=== PATIENT | female | born 1955 | race Caucasian/White ===

== ENCOUNTER 2021-02-01 04:32 | Day surgery (SDC) | payer OTHER ==
[2021-02-01] MEDS ORDERED: PROPOFOL 20 ML ONE ×2 (10:10)
[2021-02-01] MEDS ORDERED: MIDAZOLAM HCL 2 MG/2 ML SINGLE DOSE VIAL ONE ×2 (10:10)
[2021-02-01] MEDS ORDERED: LIDOCAINE HCL 1%, 10 MG/ML (20ML VIAL) ONE ×2 (10:13→10:15)
[2021-02-01] MEDS ORDERED: ceFAZolin SODIUM 1 GM VIAL ONE (10:20)
[2021-02-01] MEDS ORDERED: ceFAZolin SODIUM 1 GM VIAL IVPB ONE (10:24)
[2021-02-01] MEDS ORDERED: LIDOCAINE HCL 1%, 10 MG/ML (20ML VIAL) NR ONE (10:25)
[2021-02-01] MEDS ORDERED: HEPARIN NA (PORCINE) 5,000 UNITS/ML 1ML VIAL ONE (10:34)
[2021-02-01] MEDS ORDERED: oxyCODONE HCL 5 MG TABLET PO PRN ×2 (12:57)
[2021-02-01] MEDS ORDERED: ONDANSETRON 4 MG/2 ML VIAL IVPUSH PRN (12:57)
[2021-02-01] MEDS ORDERED: LACTATED RINGERS SOLUTION 1,000 ML IV SCH (13:00)
[2021-02-01 14:11] VITALS: PULSE 65; TEMP 97.5
[2021-02-01 14:12] VITALS: BP 142/68
== END 2021-02-01 14:10 | disposition home or self-care (01) ==
LOC: JASU-SURG 04:32
PROVIDERS: ATTEND Surgery Vascular Surgery
PROC: 047K3DZ Dilation of Right Femoral Artery with Intraluminal Device, Percutaneous Approach (ICD-10-PCS; principal; 2021-02-01 09:30)
DX: E11.51 Type 2 diabetes mellitus with diabetic peripheral angiopathy without gangrene (principal); I70.211 Atherosclerosis of native arteries of extremities with intermittent claudication, right leg
CPT/HCPCS: 37227; C1877; 76000-TC-FY; 82962; 94760; J1644

== ENCOUNTER 2021-04-12 04:58 | Day surgery (SDC) | payer OTHER ==
[2021-04-11 10:54] VITALS: BMI 32.2
[2021-04-12] MEDS ORDERED: PROPOFOL 20 ML ONE ×2 (17:22)
[2021-04-12] MEDS ORDERED: LIDOCAINE HCL 1%, 10 MG/ML (20ML VIAL) ONE (17:24)
[2021-04-12] MEDS ORDERED: MIDAZOLAM HCL 2 MG/2 ML SINGLE DOSE VIAL ONE (17:24)
[2021-04-12] MEDS ORDERED: HEPARIN NA (PORCINE) 5,000 UNITS/ML 1ML VIAL ONE (17:24)
[2021-04-12] MEDS ORDERED: DESFLURANE GAS 240 ML BOTTLE IH ONE (17:28)
[2021-04-12] MEDS ORDERED: ceFAZolin SODIUM 1 GM VIAL IVPB ONE (17:51)
[2021-04-12] MEDS ORDERED: LIDOCAINE HCL 1%, 10 MG/ML (20ML VIAL) INF ONE (18:19)
[2021-04-12] MEDS ORDERED: oxyCODONE HCL 5 MG TABLET PO PRN ×2 (18:46)
[2021-04-12] MEDS ORDERED: ONDANSETRON 4 MG/2 ML VIAL IVPUSH PRN (18:46)
[2021-04-12] MEDS ORDERED: LACTATED RINGERS SOLUTION 1,000 ML IV SCH (19:00)
[2021-04-12 20:18] VITALS: BP 160/65; PULSE 72; TEMP 97
== END 2021-04-12 20:15 | disposition home or self-care (01) ==
LOC: JASU-SURG 04:58
PROVIDERS: ATTEND Surgery Vascular Surgery
PROC: 047L3Z1 Dilation of Left Femoral Artery using Drug-Coated Balloon, Percutaneous Approach (ICD-10-PCS; 2021-04-12)
PROC: B41GYZZ Fluoroscopy of Left Lower Extremity Arteries using Other Contrast (ICD-10-PCS; principal; 2021-04-12 12:30)
DX: I70.212 Atherosclerosis of native arteries of extremities with intermittent claudication, left leg (principal); E11.51 Type 2 diabetes mellitus with diabetic peripheral angiopathy without gangrene; I10 Essential (primary) hypertension
CPT/HCPCS: 37225; C2623; 76000-TC-FY; 82962; 94760; C9803; J1644; U0003; U0005

== ENCOUNTER 2021-09-06 04:34 | Day surgery (SDC) | payer OTHER ==
[2021-09-06] MEDS ORDERED: ONDANSETRON 4 MG/2 ML VIAL IVPUSH PRN (08:58)
[2021-09-06] MEDS ORDERED: oxyCODONE HCL 5 MG TABLET PO PRN (08:58)
[2021-09-06] MEDS ORDERED: LACTATED RINGERS SOLUTION 1,000 ML IV SCH (09:00)
[2021-09-06] MEDS ORDERED: HEPARIN NA (PORCINE) 5,000 UNITS/ML 1ML VIAL ONE ×2 (09:01→09:51)
[2021-09-06] MEDS ORDERED: ceFAZolin SODIUM 1 GM VIAL IVPB ONE (09:28)
[2021-09-06] MEDS ORDERED: MIDAZOLAM HCL 2 MG/2 ML SINGLE DOSE VIAL ONE (09:30)
[2021-09-06] MEDS ORDERED: PROPOFOL 20 ML ONE ×2 (09:32→10:14)
[2021-09-06] MEDS ORDERED: DEXAMETHASONE SOD PHOSPHATE 4 MG/1 ML VIAL ONE (09:38)
[2021-09-06] MEDS ORDERED: HEPARIN NA (PORCINE) 5,000 UNITS/ML 1ML VIAL SQ ONE (09:50)
[2021-09-06] MEDS ORDERED: IOVERSOL 320 MG/ML ML IV ONE (10:03)
[2021-09-06] MEDS ORDERED: LIDOCAINE HCL 1%, 10 MG/ML (20ML VIAL) INF ONE (10:05)
[2021-09-06] MEDS ORDERED: CLOPIDOGREL BISULFATE 75 MG TABLET (FP) PO ONE (10:47)
[2021-09-06] MEDS ORDERED: oxyCODONE HCL 5 MG TABLET ONE (13:52)
[2021-09-06 15:43] VITALS: BP 108/50; PULSE 70; TEMP 97.8
== END 2021-09-06 14:35 | disposition home or self-care (01) ==
LOC: JASU-SURG 04:34
PROVIDERS: ATTEND Surgery Vascular Surgery
PROC: 047K3D1 Dilation of Right Femoral Artery with Intraluminal Device, using Drug-Coated Balloon, Percutaneous Approach (ICD-10-PCS; principal; 2021-09-06 09:30)
DX: E11.51 Type 2 diabetes mellitus with diabetic peripheral angiopathy without gangrene (principal); I70.211 Atherosclerosis of native arteries of extremities with intermittent claudication, right leg
CPT/HCPCS: 36246; 37227; 75898; C1875; C2623; 76000-TC-FY; 82962; 94760; J1644

== ENCOUNTER 2021-11-07 01:30 | Inpatient (IN) | payer OTHER ==
[2021-11-07 03:36] VITALS: BMI 31.5
[2021-11-07] MEDS ORDERED: HEPARIN NA (PORCINE) 5,000 UNITS/ML 1ML VIAL IVPUSH PRN ×4 (04:25→18:21)
[2021-11-07 09:01] LABS: BASO % 0.9 % (0-2.0); EOS % 4.6 % (0-4.5); HEMATOCRIT 37.3 % (32.4-45.2); HEMOGLOBIN 12.6 GM/dL (10.7-15.3); LYMPH % 33.1 % (8-40); MCH 29.2 pg (25.7-33.7); MCHC 33.8 g/dl (32.0-36.0); MEAN CELL VOLUME 86.4 fl (80-96); MEAN PLT VOLUME 9.1 fl (7.5-11.1); MONO % 7.6 % (3.8-10.2); NEUT % 53.8 % (42.8-82.8); PLATELET COUNT 209 10^3/uL (134-434); RBC 4.32 M/mm3 (3.60-5.2); RDW 14.7 % (11.6-15.6)
[2021-11-07 09:34] LABS: ACTIVATED PTT > 400.0 SECONDS (25.2-36.5)
[2021-11-07] MEDS: HEPARIN - 25,000 UNIT in SODIUM CHLORIDE 495 ML IV SCH ×2 (09:45→14:32)
[2021-11-07] MEDS ORDERED: PANTOPRAZOLE 40 MG TABLET PO SCH (10:00)
[2021-11-07] MEDS ORDERED: FOLIC ACID 1 MG TABLET (FP) PO SCH (10:00)
[2021-11-07] MEDS ORDERED: metoPROLOL SUCCINATE 25 MG TAB.SR.24H (FP) PO SCH (10:00)
[2021-11-07] MEDS ORDERED: GABAPENTIN 300 MG CAPSULE PO SCH (10:00)
[2021-11-07 11:03] LABS: BILIRUBIN,TOTAL 0.3 mg/dL (0.2-1); BLOOD UREA NITROGEN 11.1 mg/dL (7-18); CALCIUM 8.5 mg/dL (8.5-10.1); CREATININE 0.6 mg/dL (0.55-1.3)
[2021-11-07] MEDS ORDERED: ACETAMINOPHEN 1000 MG/100 ML BAG IVPB ONE (14:16)
[2021-11-07] MEDS ORDERED: LIDOCAINE HCL 1%, 10 MG/ML (20ML VIAL) ONE (14:48)
[2021-11-07] MEDS ORDERED: HEPARIN NA (PORCINE) 5,000 UNITS/ML 1ML VIAL ONE (14:48)
[2021-11-07] MEDS ORDERED: MIDAZOLAM HCL 2 MG/2 ML SINGLE DOSE VIAL ONE (14:56)
[2021-11-07] MEDS ORDERED: FENTANYL CITRATE/PF 50 MCG/ML VIAL ONE ×4 (14:57→17:20)
[2021-11-07] MEDS ORDERED: LIDOCAINE HCL 1%, 10 MG/ML (20ML VIAL) INF ONE ×2 (15:02→15:33)
[2021-11-07] MEDS ORDERED: HEPARIN NA (PORCINE) 5,000 UNITS/ML 1ML VIAL SQ ONE ×2 (15:02→15:33)
[2021-11-07] MEDS ORDERED: IOHEXOL 300 MG/ML INFUS..BTL IV ONE ×2 (15:33→15:38)
[2021-11-07] MEDS ORDERED: ceFAZolin 2 GRAM PREMIX BAG IVPB ONE (15:45)
[2021-11-07] MEDS ORDERED: SUGAMMADEX SODIUM 200 MG/2 ML VIAL ONE ×2 (16:51→16:52)
[2021-11-07] MEDS ORDERED: PROMETHAZINE HCL 25 MG/1 ML VIAL IVPUSH PRN (17:08)
[2021-11-07] MEDS ORDERED: ONDANSETRON 4 MG/2 ML VIAL IVPUSH PRN ×2 (17:08→18:12)
[2021-11-07] MEDS ORDERED: LACTATED RINGERS SOLUTION 1,000 ML IV SCH (17:15)
[2021-11-07] MEDS ORDERED: CLOPIDOGREL BISULFATE 75 MG TABLET (FP) ONE (18:14)
[2021-11-07] MEDS: CLOPIDOGREL BISULFATE 75 MG TABLET (FP) PO SCH (18:15)
[2021-11-07] MEDS ORDERED: HEPARIN INFUSION - 25,000 UNITS/500 ML INFUS.BAG IVPB ONE (18:20)
[2021-11-07] MEDS ORDERED: HEPARIN INFUSION - 25,000 UNITS/500 ML INFUS.BAG IVPB SCH (18:30)
[2021-11-07] MEDS: HEPARIN NA (PORCINE) 5,000 UNITS/ML 1ML VIAL IVPUSH PRN (18:30)
[2021-11-07] MEDS: ATORVASTATIN CA 80 MG TABLET (FP) PO SCH (21:14)
[2021-11-07] MEDS: PANTOPRAZOLE 40 MG TABLET PO SCH (21:14)
[2021-11-07] MEDS ORDERED: ATORVASTATIN CA 80 MG TABLET (FP) PO SCH (22:00)
[2021-11-08] MEDS ORDERED: ACETAMINOPHEN 1000 MG/100 ML BAG IVPB ONE (08:04)
[2021-11-08] MEDS: FOLIC ACID 1 MG TABLET (FP) PO SCH (10:40)
[2021-11-08] MEDS: CLOPIDOGREL BISULFATE 75 MG TABLET (FP) PO SCH (10:40)
[2021-11-08] MEDS: GABAPENTIN 300 MG CAPSULE PO SCH (10:40)
[2021-11-08] MEDS: PANTOPRAZOLE 40 MG TABLET PO SCH ×2 (10:41→22:01)
[2021-11-08] MEDS: metoPROLOL SUCCINATE 25 MG TAB.SR.24H (FP) PO SCH (10:41)
[2021-11-08] MEDS: HEPARIN NA (PORCINE) 5,000 UNITS/ML 1ML VIAL IVPUSH PRN (12:24)
[2021-11-08] MEDS: INSULIN SLIDING SCALE (NOVOLOG) 1 VIAL SQ SCH ×2 (16:24→22:09)
[2021-11-08] MEDS: ATORVASTATIN CA 80 MG TABLET (FP) PO SCH (22:01)
[2021-11-09] MEDS: INSULIN SLIDING SCALE (NOVOLOG) 1 VIAL SQ SCH ×3 (06:04→16:49)
[2021-11-09 09:22] LABS: HEMATOCRIT 39.3 % (32.4-45.2); MCHC 33.2 g/dl (32.0-36.0); MEAN CELL VOLUME 87.6 fl (80-96); MEAN PLT VOLUME 9.3 fl (7.5-11.1); PLATELET COUNT 222 10^3/uL (134-434); RBC 4.49 M/mm3 (3.60-5.2); RDW 14.6 % (11.6-15.6); WHITE BLOOD COUNT 8.4 K/mm3 (4.0-10.0)
[2021-11-09 09:43] LABS: INR 1.09 (0.83-1.09); PROTHROMBIN TIME (PATIENT) 12.5 SEC (9.7-13.0)
[2021-11-09 09:58] LABS: ALBUMIN 3.1 g/dl (3.4-5.0); BLOOD UREA NITROGEN 14.3 mg/dL (7-18)
[2021-11-09 10:01] LABS: CREATININE 0.7 mg/dL (0.55-1.3); PHOSPHOROUS 2.9 mg/dL (2.5-4.9)
[2021-11-09 10:02] LABS: TOT PROT 6.4 g/dl (6.4-8.2)
[2021-11-09 10:11] LABS: BILIRUBIN,TOTAL 0.5 mg/dL (0.2-1)
[2021-11-09] MEDS: CLOPIDOGREL BISULFATE 75 MG TABLET (FP) PO SCH (10:23)
[2021-11-09] MEDS: GABAPENTIN 300 MG CAPSULE PO SCH (10:23)
[2021-11-09] MEDS: FOLIC ACID 1 MG TABLET (FP) PO SCH (10:23)
[2021-11-09] MEDS: PANTOPRAZOLE 40 MG TABLET PO SCH (10:24)
[2021-11-09] MEDS: metoPROLOL SUCCINATE 25 MG TAB.SR.24H (FP) PO SCH (10:24)
[2021-11-09 16:06] VITALS: BP 140/65; PULSE 66; TEMP 97.8
== END 2021-11-09 17:39 | disposition home or self-care (01) | DRG 272 ==
LOC: J8W 01:30
PROVIDERS: ADMIT Hospitalist; ATTEND Internal Medicine
PROC: 047K3ZZ Dilation of Right Femoral Artery, Percutaneous Approach (ICD-10-PCS; 2021-11-07)
PROC: 047K3DZ Dilation of Right Femoral Artery with Intraluminal Device, Percutaneous Approach (ICD-10-PCS; 2021-11-07)
PROC: B40DYZZ Plain Radiography of Aorta and Bilateral Lower Extremity Arteries using Other Contrast (ICD-10-PCS; 2021-11-07)
PROC: B40FYZZ Plain Radiography of Right Lower Extremity Arteries using Other Contrast (ICD-10-PCS; 2021-11-07)
PROC: 04CK3ZZ Extirpation of Matter from Right Femoral Artery, Percutaneous Approach (ICD-10-PCS; principal; 2021-11-07 15:00)
DX: I70.211 Atherosclerosis of native arteries of extremities with intermittent claudication, right leg (principal); E11.9 Type 2 diabetes mellitus without complications; I10 Essential (primary) hypertension; E78.5 Hyperlipidemia, unspecified; E11.42 Type 2 diabetes mellitus with diabetic polyneuropathy; E87.6 Hypokalemia
CPT/HCPCS: 36415; 76000-TC-FY; 80053; 80061; 82962; 83036; 83735; 84100; 84443; 85025; 85027; 85610; 85730; 86850; 86900; 86901; 93005; 93010; 94760; J1644

== ENCOUNTER 2022-10-03 04:23 | Day surgery (SDC) | payer OTHER ==
[2022-10-02 18:06] VITALS: BMI 31.5
[2022-10-03] MEDS ORDERED: HEPARIN NA (PORCINE) 5,000 UNITS/ML 1ML VIAL ONE (10:37)
[2022-10-03] MEDS ORDERED: LIDOCAINE HCL 1%, 10 MG/ML (10ML VIAL) MDV ONE (10:37)
[2022-10-03] MEDS ORDERED: MIDAZOLAM HCL 2 MG/2 ML SINGLE DOSE VIAL ONE ×2 (11:39→11:48)
[2022-10-03] MEDS ORDERED: ceFAZolin SODIUM 1 GM VIAL IVPB ONE (11:43)
[2022-10-03] MEDS ORDERED: LIDOCAINE HCL 1%, 10 MG/ML (50 mL VIAL) INF ONE (11:47)
[2022-10-03] MEDS ORDERED: ceFAZolin SODIUM 1 GM VIAL ONE (11:48)
[2022-10-03] MEDS ORDERED: ONDANSETRON 4 MG/2 ML VIAL IVPUSH PRN (12:42)
[2022-10-03] MEDS ORDERED: oxyCODONE HCL 5 MG TABLET PO PRN (12:42)
[2022-10-03 15:32] VITALS: PULSE 70; RESP 18
[2022-10-03] MEDS ORDERED: oxyCODONE HCL 5 MG TABLET ONE (15:58)
[2022-10-03 16:14] VITALS: BP 160/54; TEMP 97.8
== END 2022-10-03 16:45 | disposition home or self-care (01) ==
LOC: JASU-SURG 04:23
PROVIDERS: ATTEND Surgery Vascular Surgery
PROC: X27J385 Dilation of Left Femoral Artery with Sustained Release Drug-eluting Intraluminal Device, Percutaneous Approach, New Technology Group 5 (ICD-10-PCS; principal; 2022-10-03 10:30)
DX: I70.212 Atherosclerosis of native arteries of extremities with intermittent claudication, left leg (principal); E11.40 Type 2 diabetes mellitus with diabetic neuropathy, unspecified; I10 Essential (primary) hypertension; I73.9 Peripheral vascular disease, unspecified
CPT/HCPCS: 37226; C1875; 76000-TC-FY; 82962; 94760; C1760; C1769; C1876; J1644

== ENCOUNTER 2022-10-27 12:17 | Inpatient (IN) | payer OTHER ==
[2022-10-27 12:25] VITALS: BMI 26.1
[2022-10-27 13:03] LABS: BASO % 0.7 % (0-2.0); EOS % 2.3 % (0-4.5); HEMATOCRIT 38.2 % (32.4-45.2); HEMOGLOBIN 12.9 GM/dL (10.7-15.3); LYMPH % 27.1 % (8-40); MCH 28.4 pg (25.7-33.7); MCHC 33.8 g/dl (32.0-36.0); MEAN CELL VOLUME 84.1 fl (80-96); MEAN PLT VOLUME 9.6 fl (7.5-11.1); MONO % 6.2 % (3.8-10.2); NEUT % 63.7 % (42.8-82.8); PLATELET COUNT 264 10^3/uL (134-434); RBC 4.54 M/mm3 (3.60-5.2); RDW 15.4 % (11.6-15.6); WHITE BLOOD COUNT 7.9 K/mm3 (4.0-10.0)
[2022-10-27] MEDS ORDERED: ACETAMINOPHEN 1000 MG/100 ML BAG IVPB ONE (13:03)
[2022-10-27 13:13] LABS: ACTIVATED PTT 44.4 SECONDS (25.2-36.5)
[2022-10-27 13:26] LABS: POTASSIUM 4.4 mmol/L (3.5-5.1)
[2022-10-27 13:28] LABS: CALCIUM 10.1 mg/dL (8.5-10.1)
[2022-10-27 13:29] LABS: ALBUMIN 3.4 g/dl (3.4-5.0); BLOOD UREA NITROGEN 13.4 mg/dL (7-18); MAGNESIUM 1.3 mg/dL (1.8-2.4)
[2022-10-27 13:32] LABS: CREATININE 0.7 mg/dL (0.55-1.3)
[2022-10-27 13:33] LABS: BILIRUBIN,TOTAL 0.2 mg/dL (0.2-1); TOT PROT 6.8 g/dl (6.4-8.2)
[2022-10-27] MEDS ORDERED: ACETAMINOPHEN INJECTION 100 ML IVPB ONE (13:56)
[2022-10-27] MEDS ORDERED: MAGNESIUM SULF 50% (8.12 MEQ/2 ML-1 GM VIAL) IVPB ONE (13:59)
[2022-10-27] MEDS ORDERED: MAGNESIUM SULFATE IN WATER 2 GM/50 ML IVPB IVPB ONE (14:35)
[2022-10-27] MEDS ORDERED: oxyCODONE HCL 5 MG TABLET PO PRN (15:01)
[2022-10-27 15:24] LABS: INR 1.37 (0.83-1.09); PROTHROMBIN TIME (PATIENT) 15.8 SEC (9.7-13.0)
[2022-10-27] MEDS ORDERED: LISINOPRIL 10 MG TABLET ONE (15:24)
[2022-10-27] MEDS: LISINOPRIL 10 MG TABLET PO SCH (15:29)
[2022-10-27] MEDS: INSULIN SLIDING SCALE (NOVOLOG) 1 VIAL SQ SCH (17:26)
[2022-10-27] MEDS: ACETAMINOPHEN 325 MG TABLET (FP) PO PRN (21:29)
[2022-10-27] MEDS ORDERED: ATORVASTATIN CA 80 MG TABLET (FP) PO SCH (22:00)
[2022-10-27] MEDS: PANTOPRAZOLE 40 MG TABLET PO SCH (22:02)
[2022-10-27] MEDS: GABAPENTIN 300 MG CAPSULE PO SCH (22:02)
[2022-10-28] MEDS: GABAPENTIN 300 MG CAPSULE PO SCH ×3 (06:12→21:50)
[2022-10-28] MEDS: ACETAMINOPHEN 325 MG TABLET (FP) PO PRN ×3 (06:12→21:50)
[2022-10-28] MEDS: INSULIN SLIDING SCALE (NOVOLOG) 1 VIAL SQ SCH ×3 (06:15→16:53)
[2022-10-28 08:14] LABS: BASO % 1.4 % (0-2.0); EOS % 2.8 % (0-4.5); HEMATOCRIT 32.8 % (32.4-45.2); HEMOGLOBIN 11.1 GM/dL (10.7-15.3); LYMPH % 37.3 % (8-40); MCH 28.3 pg (25.7-33.7); MCHC 33.9 g/dl (32.0-36.0); MEAN CELL VOLUME 83.7 fl (80-96); MEAN PLT VOLUME 9.3 fl (7.5-11.1); MONO % 6.8 % (3.8-10.2); NEUT % 51.7 % (42.8-82.8); PLATELET COUNT 236 10^3/uL (134-434); RBC 3.92 M/mm3 (3.60-5.2); RDW 15.3 % (11.6-15.6); WHITE BLOOD COUNT 5.4 K/mm3 (4.0-10.0)
[2022-10-28 08:20] LABS: INR 1.1 (0.83-1.09); PROTHROMBIN TIME (PATIENT) 12.7 SEC (9.7-13.0)
[2022-10-28 08:22] LABS: ACTIVATED PTT 36.7 SECONDS (25.2-36.5)
[2022-10-28 08:28] LABS: POTASSIUM 4.1 mmol/L (3.5-5.1)
[2022-10-28 08:30] LABS: ALBUMIN 3.1 g/dl (3.4-5.0); BLOOD UREA NITROGEN 11.7 mg/dL (7-18); MAGNESIUM 1.7 mg/dL (1.8-2.4)
[2022-10-28 08:33] LABS: CREATININE 0.6 mg/dL (0.55-1.3); PHOSPHOROUS 4.3 mg/dL (2.5-4.9)
[2022-10-28 08:35] LABS: BILIRUBIN,TOTAL 0.3 mg/dL (0.2-1); TOT PROT 5.8 g/dl (6.4-8.2)
[2022-10-28] MEDS: LISINOPRIL 10 MG TABLET PO SCH (09:11)
[2022-10-28] MEDS: PANTOPRAZOLE 40 MG TABLET PO SCH ×2 (09:11→21:51)
[2022-10-28] MEDS ORDERED: ASPIRIN 81 MG CHEWABLE TABLETS PO SCH (10:00)
[2022-10-28] MEDS ORDERED: MIDAZOLAM HCL 2 MG/2 ML SINGLE DOSE VIAL ONE (13:33)
[2022-10-28] MEDS ORDERED: HEPARIN NA (PORCINE) 5,000 UNITS/ML 1ML VIAL ONE (13:35)
[2022-10-28] MEDS ORDERED: LIDOCAINE HCL 1%, 10 MG/ML (10ML VIAL) MDV ONE (13:35)
[2022-10-28] MEDS ORDERED: DEXMEDETOMIDINE HCL 200 MCG/2 ML IVPB ONE (13:39)
[2022-10-28] MEDS ORDERED: ceFAZolin SODIUM 1 GM VIAL IVPB ONE (14:25)
[2022-10-28] MEDS ORDERED: ceFAZolin SODIUM 1 GM VIAL ONE (14:26)
[2022-10-28] MEDS ORDERED: LIDOCAINE HCL 1%, 10 MG/ML (20ML VIAL) NR ONE ×2 (14:31)
[2022-10-28] MEDS ORDERED: HEPARIN NA (PORCINE) 5,000 UNITS/ML 1ML VIAL SQ ONE ×2 (14:35)
[2022-10-28] MEDS ORDERED: PROMETHAZINE HCL 25 MG/1 ML VIAL IVPB PRN (15:24)
[2022-10-28] MEDS ORDERED: ONDANSETRON 4 MG/2 ML VIAL IVPUSH PRN (15:24)
[2022-10-28] MEDS ORDERED: LACTATED RINGERS SOLUTION 1,000 ML IV SCH (15:30)
[2022-10-28] MEDS ORDERED: oxyCODONE HCL 5 MG TABLET PO PRN (15:43)
[2022-10-28 18:14] VITALS: RESP 20
[2022-10-28] MEDS: APIXABAN 5 MG TABLET PO SCH (21:51)
[2022-10-28] MEDS ORDERED: ATORVASTATIN CA 80 MG TABLET (FP) PO SCH (22:00)
[2022-10-28 23:54] VITALS: TEMP 98.1
[2022-10-29] MEDS: ACETAMINOPHEN 325 MG TABLET (FP) PO PRN (05:52)
[2022-10-29] MEDS: GABAPENTIN 300 MG CAPSULE PO SCH (06:46)
[2022-10-29] MEDS: INSULIN SLIDING SCALE (NOVOLOG) 1 VIAL SQ SCH ×2 (06:47→12:24)
[2022-10-29] MEDS: PANTOPRAZOLE 40 MG TABLET PO SCH (09:28)
[2022-10-29] MEDS: APIXABAN 5 MG TABLET PO SCH (09:28)
[2022-10-29] MEDS ORDERED: LISINOPRIL 10 MG TABLET PO SCH (10:00)
[2022-10-29] MEDS ORDERED: ASPIRIN 81 MG CHEWABLE TABLETS PO SCH (10:00)
[2022-10-29 10:04] LABS: BASO % 0.8 % (0-2.0); EOS % 2.3 % (0-4.5); HEMATOCRIT 35.3 % (32.4-45.2); HEMOGLOBIN 11.6 GM/dL (10.7-15.3); LYMPH % 21.9 % (8-40); MCH 27.8 pg (25.7-33.7); MCHC 32.8 g/dl (32.0-36.0); MEAN CELL VOLUME 84.8 fl (80-96); MEAN PLT VOLUME 9.5 fl (7.5-11.1); MONO % 5.2 % (3.8-10.2); NEUT % 69.8 % (42.8-82.8); PLATELET COUNT 232 10^3/uL (134-434); RBC 4.16 M/mm3 (3.60-5.2); RDW 15.5 % (11.6-15.6); WHITE BLOOD COUNT 8.2 K/mm3 (4.0-10.0)
[2022-10-29 10:16] VITALS: BP 127/76; PULSE 62
[2022-10-29 10:22] LABS: POTASSIUM 4.2 mmol/L (3.5-5.1)
[2022-10-29 10:26] LABS: BLOOD UREA NITROGEN 10.6 mg/dL (7-18); CALCIUM 9.1 mg/dL (8.5-10.1)
[2022-10-29 10:29] LABS: CREATININE 0.7 mg/dL (0.55-1.3)
[2022-10-29 10:31] LABS: BILIRUBIN,TOTAL 0.4 mg/dL (0.2-1); TOT PROT 5.9 g/dl (6.4-8.2)
== END 2022-10-29 12:30 | disposition home or self-care (01) | DRG 272 ==
LOC: JER 12:17 → JERBED 14:06 → J5S 16:19
PROVIDERS: ADMIT Internal Medicine; ATTEND Internal Medicine
PROC: 04CK3ZZ Extirpation of Matter from Right Femoral Artery, Percutaneous Approach (ICD-10-PCS; 2022-10-28)
PROC: 047K3D1 Dilation of Right Femoral Artery with Intraluminal Device, using Drug-Coated Balloon, Percutaneous Approach (ICD-10-PCS; 2022-10-28)
PROC: 04CK3ZZ Extirpation of Matter from Right Femoral Artery, Percutaneous Approach (ICD-10-PCS; 2022-10-28)
PROC: B40FYZZ Plain Radiography of Right Lower Extremity Arteries using Other Contrast (ICD-10-PCS; 2022-10-28)
PROC: 3E05317 Introduction of Other Thrombolytic into Peripheral Artery, Percutaneous Approach (ICD-10-PCS; 2022-10-28)
PROC: B40DYZZ Plain Radiography of Aorta and Bilateral Lower Extremity Arteries using Other Contrast (ICD-10-PCS; principal; 2022-10-28 14:00)
DX: T82.868A Thrombosis due to vascular prosthetic devices, implants and grafts, initial encounter (principal); E11.51 Type 2 diabetes mellitus with diabetic peripheral angiopathy without gangrene; I10 Essential (primary) hypertension; M79.661 Pain in right lower leg; E83.42 Hypomagnesemia; I25.10 Atherosclerotic heart disease of native coronary artery without angina pectoris; E78.5 Hyperlipidemia, unspecified; E11.40 Type 2 diabetes mellitus with diabetic neuropathy, unspecified; Y83.8 Other surgical procedures as the cause of abnormal reaction of the patient, or of later complication, without mention of misadventure at the time of the procedure
CPT/HCPCS: 0241U-QW; 36415; 71045-TC-FY; 76000-TC-FY; 80053; 82962; 83735; 84100; 84484; 85025; 85610; 85730; 93005; 93010; 94760; 97116-GP; 97161-GP; 99285-25; C1760; C1769; C1887; J1644